=== PATIENT | female | born 1995 | race Two or more races ===

== ENCOUNTER 2023-09-22 20:45 | Emergency (ER) | payer MEDICAID, OTHER ==
[~2023-09-22] VITALS: Ht 160 cm; Wt 81.8 kg
[2023-09-22] MEDS ORDERED: IBUP-1456 PO (23:38)
[2023-09-23] MEDS: KETOROLAC TROMETH 60MG/2ML VIAL IM ONE (00:27)
[2023-09-23 00:48] VITALS: BP 137/76; PULSE 79; RESP 18; TEMP 97.8; O2SAT 98
== END 2023-09-23 01:18 | disposition home or self-care (01) ==
LOC: EDBD 20:45 → ER 20:45
DX: S83.8X1A Sprain of other specified parts of right knee, initial encounter (principal); Z79.899 Other long term (current) drug therapy; X58.XXXA Exposure to other specified factors, initial encounter; Y93.89 Activity, other specified; Y92.512 Supermarket, store or market as the place of occurrence of the external cause; Y99.8 Other external cause status
CPT/HCPCS: 29505; 73562; 96372; 99283; J1885